=== PATIENT | male | born 1970 | race Caucasian/White ===

== ENCOUNTER 2017-04-12 08:18 | Inpatient (IN) | payer SELFPAY ==
[~2017-04-12] VITALS: Ht 172.7 cm; Wt 90.7 kg
[2017-04-12] MEDS ORDERED: LABETALOL 5MG/ML SYR 20 MG/4 ML SYRINGE IV ONE (08:45)
[2017-04-12 09:09] LABS: BASOPHILS % 1.1 % (0.0-2.0); EOSINOPHILS % 0.9 % (0.0-5.0); HEMATOCRIT. 41.5 % (42.0-52.0); HEMOGLOBIN. 14.6 g/dL (14.0-18.0); LYMPHOCYTES % 20.4 % (20.0-50.0); MEAN CORPUSCULAR HEMOGLOBIN 28.8 pg (28.0-32.0); MEAN CORPUSCULAR VOLUME 81.7 fL (80.0-94.0); MEAN PLATELET VOLUME 9.8 fl (7.4-10.4); MONOCYTES % 5.4 % (2.0-8.0); NEUTROPHILS % 72.2 % (40.0-76.0); PLATELET 189 x1000/uL (130-400); RED BLOOD CELL COUNT 5.08 mill/uL (4.7-6.1)
[2017-04-12 09:17] LABS: INR 1.1; PARTIAL THROMBOPLASTIN TIME 27.3 sec (23.4-31.0); PROTHROMBIN TIME 10.9 sec (9.4-11.6)
[2017-04-12 09:26] LABS: GLUCOSE URINE 3+ (NEGATIVE); KETONES URINE 2+ (NEGATIVE); LEUKOCYTE ESTERASE URINE NEGATIVE (NEGATIVE); NITRITE URINE NEGATIVE (NEGATIVE); OCCULT BLOOD URINE NEGATIVE (NEGATIVE); PH URINE 6.5 (4.5-8.0); PROTEIN URINE 2+ (NEGATIVE); SPECIFIC GRAVITY URINE 1.031 (1.005-1.030); UROBILINOGEN URINE 0.2 E.U./dL (0.2-1.0)
[2017-04-12 09:27] LABS: CARBON DIOXIDE 25 mEq/L (21-32); CHLORIDE 100 mEq/L (98-107); CREATINE KINASE 82 IU/L (39-308); ETHANOL BLOOD < 10 mg/dL; LDL CHOLESTEROL 224 mg/dL (5-100); TROPONIN I < 0.02 ng/mL (0.00-0.04)
[2017-04-12 09:27] LABS: COLOR URINE YELLOW (YELLOW)
[2017-04-12 09:28] LABS: CLARITY URINE CLEAR (CLEAR)
[2017-04-12 09:36] LABS: *AMPHETAMINES SCREEN URINE NEGATIVE (NEGATIVE); *BARBITURATES SCREEN URINE NEGATIVE (NEGATIVE); *BENZODIAZEPINES SCREEN URINE NEGATIVE (NEGATIVE); *COCAINE SCREEN URINE NEGATIVE (NEGATIVE); CANNABINOID URINE SCREEN NEGATIVE (NEGATIVE); METHADONE URINE SCREEN NEGATIVE (NEGATIVE); OPIATES URINE SCREEN NEGATIVE (NEGATIVE); PHENCYCLIDINE URINE SCREEN NEGATIVE (NEGATIVE)
[2017-04-12] MEDS ORDERED: ASPIRIN 325MG EC TABLET PO ONE (10:00)
[2017-04-12] MEDS ORDERED: ENOXAPARIN 40MG/0.4ML SYR SUBCUT SCH (13:45)
[2017-04-12] MEDS ORDERED: HYDROCODONE/ACETAMINOPHEN 5/325MG TABLET PO PRN (13:45)
[2017-04-12] MEDS ORDERED: MAGNESIUM/ALUMINUM HYDROXIDE/SIMETHICONE 30ML UDC PO PRN (13:45)
[2017-04-12] MEDS ORDERED: ACETAMINOPHEN 325MG TABLET PO PRN (13:45)
[2017-04-12] MEDS ORDERED: ONDANSETRON HCL 4MG/2ML VIAL IV PRN (13:45)
[2017-04-12 15:09] VITALS: BP 159/100
[2017-04-12] MEDS: AMLODIPINE 10MG TABLET PO SCH (15:22)
[2017-04-12] MEDS: CLONIDINE 0.1MG TABLET PO PRN (15:22)
[2017-04-12 16:00] VITALS: BP 127/82
[2017-04-12] MEDS ORDERED: DEXTROSE 50% WATER 50ML SYRINGE IV PRN (17:30)
[2017-04-12 17:44] LABS: CREATINE KINASE 66 IU/L (39-308); CREATINE KINASE MB FRACTION 0.8 ng/mL (0.5-3.6); TROPONIN I < 0.02 ng/mL (0.00-0.04)
[2017-04-12] MEDS ORDERED: INSULIN DETEMIR UD 100 UNITS/ML SYR SUBCUT NR (18:30)
[2017-04-12 20:00] VITALS: BP 141/95
[2017-04-12] MEDS: BLOOD SUGAR DIAGNOSTIC STRIP TEST SCH (20:56)
[2017-04-12] MEDS: ATORVASTATIN CALCIUM 20MG TABLET PO SCH (21:08)
[2017-04-12] MEDS: ENOXAPARIN 30MG/0.3ML SYR SUBCUT SCH (21:09)
[2017-04-12] MEDS: INSULIN LISPRO 100 UNITS/ML SUBCUT SCH (21:13)
[2017-04-13] VITALS: BP 144/94
[2017-04-13] LABS: CREATINE KINASE 58 IU/L (39-308); CREATINE KINASE MB FRACTION 0.9 ng/mL (0.5-3.6); TROPONIN I < 0.02 ng/mL (0.00-0.04)
[2017-04-13 04:00] VITALS: BP 139/91
[2017-04-13] MEDS: INSULIN LISPRO 100 UNITS/ML SUBCUT SCH ×4 (06:23→20:11)
[2017-04-13 07:11] LABS: BASOPHILS % 0.7 % (0.0-2.0); EOSINOPHILS % 2.6 % (0.0-5.0); HEMATOCRIT. 40.8 % (42.0-52.0); HEMOGLOBIN. 14.1 g/dL (14.0-18.0); LYMPHOCYTES % 29.5 % (20.0-50.0); MEAN CORPUSCULAR HEMOGLOBIN 28.3 pg (28.0-32.0); MEAN CORPUSCULAR VOLUME 82.3 fL (80.0-94.0); MEAN PLATELET VOLUME 10.4 fl (7.4-10.4); NEUTROPHILS % 57.2 % (40.0-76.0); PLATELET 197 x1000/uL (130-400); RED BLOOD CELL COUNT 4.96 mill/uL (4.7-6.1)
[2017-04-13] MEDS: BLOOD SUGAR DIAGNOSTIC STRIP TEST SCH ×3 (07:33→17:35)
[2017-04-13 08:00] VITALS: BP 161/109
[2017-04-13 08:12] LABS: CARBON DIOXIDE 29 mEq/L (21-32); CHLORIDE 100 mEq/L (98-107)
[2017-04-13] MEDS: AMLODIPINE 10MG TABLET PO SCH (09:37)
[2017-04-13] MEDS: CLONIDINE 0.1MG TABLET PO PRN (09:37)
[2017-04-13] MEDS: ASPIRIN 81MG EC TABLET PO SCH (09:37)
[2017-04-13] MEDS: ENOXAPARIN 30MG/0.3ML SYR SUBCUT SCH ×2 (09:39→20:10)
[2017-04-13 12:00] VITALS: BP 135/93
[2017-04-13] MEDS: HYDRALAZINE HCL 50MG TABLET PO SCH ×2 (13:49→22:00)
[2017-04-13 16:00] VITALS: BP 139/94
[2017-04-13 20:00] VITALS: BP 147/97
[2017-04-13] MEDS: ATORVASTATIN CALCIUM 20MG TABLET PO SCH (20:10)
[2017-04-14] VITALS: BP 146/97
[2017-04-14 04:00] VITALS: BP 147/94
[2017-04-14] MEDS: HYDRALAZINE HCL 50MG TABLET PO SCH ×3 (06:26→22:02)
[2017-04-14] MEDS: INSULIN LISPRO 100 UNITS/ML SUBCUT SCH ×4 (06:28→22:08)
[2017-04-14 08:00] VITALS: BP 142/86
[2017-04-14] MEDS: BLOOD SUGAR DIAGNOSTIC STRIP TEST SCH ×4 (08:57→21:45)
[2017-04-14] MEDS: AMLODIPINE 10MG TABLET PO SCH (10:10)
[2017-04-14] MEDS: ASPIRIN 81MG EC TABLET PO SCH (10:10)
[2017-04-14] MEDS: ENOXAPARIN 30MG/0.3ML SYR SUBCUT SCH ×2 (10:11→22:02)
[2017-04-14 12:00] VITALS: BP 153/102
[2017-04-14 16:00] VITALS: BP 138/88
[2017-04-14] MEDS: METFORMIN HCL 500MG TABLET PO SCH (18:45)
[2017-04-14 20:00] VITALS: BP 157/95
[2017-04-14] MEDS: ATORVASTATIN CALCIUM 20MG TABLET PO SCH (22:02)
[2017-04-14] MEDS: NEOMY SULF/BACITRAC ZN/POLY OINT 28GM TOP SCH (22:03)
[2017-04-15] VITALS: BP 131/85
[2017-04-15 04:00] VITALS: BP 154/104
[2017-04-15] MEDS: BLOOD SUGAR DIAGNOSTIC STRIP TEST SCH ×3 (05:52→17:30)
[2017-04-15] MEDS: HYDRALAZINE HCL 50MG TABLET PO SCH ×2 (06:09→13:57)
[2017-04-15] MEDS: INSULIN LISPRO 100 UNITS/ML SUBCUT SCH ×3 (06:11→18:04)
[2017-04-15] MEDS ORDERED: GLIPIZIDE 5MG TABLET PO SCH (06:45)
[2017-04-15 08:00] VITALS: BP 140/98
[2017-04-15] MEDS: ASPIRIN 81MG EC TABLET PO SCH (09:09)
[2017-04-15] MEDS: ENOXAPARIN 30MG/0.3ML SYR SUBCUT SCH (09:09)
[2017-04-15] MEDS: NEOMY SULF/BACITRAC ZN/POLY OINT 28GM TOP SCH (09:09)
[2017-04-15] MEDS: AMLODIPINE 10MG TABLET PO SCH (09:09)
[2017-04-15] MEDS: METFORMIN HCL 500MG TABLET PO SCH ×2 (09:09→18:02)
[2017-04-15 12:00] VITALS: BP 149/95
[2017-04-15 16:00] VITALS: BP 148/97
[2017-04-15 16:06] VITALS: BP 148/97
== END 2017-04-15 18:08 | disposition home or self-care (01) | DRG 45 ==
LOC: ER 08:46 → EDBEDREQ 09:52 → EDBEDREQTM 09:52 → 5WST 10:13 → ENRESERV 13:06
PROVIDERS: ADMIT Hospitalist; ATTEND Hospitalist
DX: I63.9 Cerebral infarction, unspecified (principal); G81.94 Hemiplegia, unspecified affecting left nondominant side; I11.9 Hypertensive heart disease without heart failure; E11.9 Type 2 diabetes mellitus without complications; E78.5 Hyperlipidemia, unspecified; I16.0 Hypertensive urgency; Z91.14 Patient's other noncompliance with medication regimen
CPT/HCPCS: 36415; 70450; 70551; 71010; 80053; 80305; 81001; 82550; 82553; 82962; 83036; 83690; 83721; 83880; 84484; 85025; 85610; 85730; 93005; 93880; 96374; 97116; 97163; 97530; 97535; 99291; G0482; J1650; J1815; J3490